=== PATIENT | female | born 1945 | race Two or more races ===

== ENCOUNTER → 2024-12-13 | Outpatient (CLI) | payer MEDICARE, SELFPAY ==
--- NOTE | 2024-12-13 10:00 | XR_ITS ---
Examination: MRI brain without intravenous contrast. Date and time of exam: December 13, 2024 1154 hours INDICATIONS: Blurred vision increasing memory loss over the last 3 months Technique: Multiple axial and sagittal images of the brain obtained. Siemens high-resolution 1.5 Tonya short bore scanners utilized. Sagittal sections, T1-weighted, TR 500, TE 14, are performed. Axial sections proton-density and T2-weighted have been obtained. Inversion recovery axial images, TR 9, 260, TE 111, TI 2500. Diffusion weighted images, axial sections, TR 4800, TE 128, B value 1000 Axial sections, ADC map, TR 4800, TE 128 Findings: Enlargement of the sella turcica is not present. The optic chiasm and infundibular are not remarkable. Prepontine and interpeduncular cisterns are not enlarged. There is no localized enlargement of the medulla or isai. Fourth ventricle and cerebellar tonsils appear normal in position. No subacute area of hemorrhage density is seen. Mass in the cerebellopontine angle region is not evident. Globes symmetrical. Orbital musculature including medial lateral rectus muscles do not exhibit abnormality. Diffusion-weighted images demonstrate no focus of restricted diffusion. Increased white matter signal moderate Mass effect upon the ventricular system is not identified. Impression: Negative for acute hemorrhage, mass effect or midline shift No acute infarct Moderate chronic microvascular white matter change
== END | disposition home or self-care (01) ==
PROVIDERS: PCP Nurse Practitioner Family; Referring Provider Psychiatry & Neurology Neurology; Visit Provider Psychiatry & Neurology Neurology
DX: R90.82 White matter disease, unspecified (principal)
CPT/HCPCS: 70551

== ENCOUNTER 2025-03-12 19:52 | Emergency (ER) | payer MEDICARE, SELFPAY ==
[2025-03-12 19:53] VITALS: BMI 28.0
[2025-03-12 20:06] VITALS: BP 146/83; PULSE 63; RESP 18; TEMP 36.4; O2SAT 98
--- NOTE | 2025-03-12 20:09 | XR_ITS ---
Examination: Knee, right , 3 views Technique: Knee AP, lateral, oblique 3 views Date and time of exam: March 12, 2025, 2013 hrs. Indications: Patient fell today with into the knee, knee pain Findings: Prominent soft tissue swelling anterior knee No fracture or dislocation Impression: Consider ultrasound soft tissue anterior knee to exclude large soft tissue hematoma
--- NOTE | 2025-03-12 20:09 | XR_ITS ---
Examination: CT cervical spine without contrast 2-D sagittal reconstructions 2-D coronal reconstructions 3-D reconstructions. Exam date and time:March 12, 2025, 2024 hrs. Indications: Ground-level fall today with into the neck, neck pain CTDI:vol (mGy) 12.2 DLP: (mGycm) 231 Technique: Multiple 2 mm axial sections of the cervical spine have been obtained. The coronal and sagittal reconstructions have been obtained. 3-D reconstructions have been obtained. Low dose protocols were performed. One or more of the following dose reduction techniques were used; automated exposure control, adjustment of the mA and/or KV according to patient size, use of iterative reconstruction technique. Findings: Axial sections demonstrate intact base of the skull. C1 exhibit satisfactory relationship to the odontoid. No acute cervical vertebral body fracture seen. Alignment posterior spinous processes satisfactory. Impression: No acute cervical fracture.
--- NOTE | 2025-03-12 20:09 | XR_ITS ---
Examination: CT brain head without contrast. 2-D sagittal coronal reconstructions Date and time of exam:March 12, 2025, 2025 hrs. Indications: Patient fell today with injury to the head, head pain dizziness CTDI: vol (mGy):46.5 DLP: (mGycm):932 Technique: Multiple CT axial sections of the brain have been obtained, 5 mm slice thickness. Contrast has not been administered. 2-D sagittal, coronal reconstructions have been obtained Low dose protocols were performed. One or more of the following dose reduction techniques were used; automated exposure control, adjustment of the mA and/or KV according to patient size, use of iterative reconstruction technique. Findings: No significant ventricular enlargement. Intra-axial or extra-axial hemorrhage density is not seen. No mass effect or midline shift Basal cisterns are not remarkable. Fourth ventricle is midline. Soft tissue swelling right frontal scalp Bone destruction which involves the occipital bones is again noted, also noted on the December 01, 2019 study, it may be slightly more prominent on the current exam Impression: Negative for acute hemorrhage or mass effect Possibly more prominent bone destruction involving the occipital bones, which may represent an unusually prominent pacchionian granulations Recommend MRI brain follow-up pre and postcontrast to exclude other etiologies for this cortical bone destruction
--- NOTE | 2025-03-12 20:10 | PD.EDRME ---
Rapid Medical Screening Exam [facility] Arrival date/time: 03/12/25 19:52 80F with history of HTN presents to ED with R knee and R head pain after patient tripped and fell. Patient landed on knee first. Patient also has some skin abrasions and has not had a tetanus shot in the past 5 years. Chief Complaint: Fall Vital signs: Vital Signs Temperature 97.6 F 03/12/25 20:06 Pulse Rate 63 03/12/25 20:06 Respiratory Rate 18 03/12/25 20:06 Blood Pressure 146/83 H 03/12/25 20:06 Pulse Oximetry (%) 98 03/12/25 20:06 Oxygen Delivery Method Room Air 03/12/25 20:06
[2025-03-12] MEDS: ACETAMINOPHEN 500 MG TABLET 1000 MG PO (20:19)
[2025-03-12] MEDS: DIPHTH,PERTUSS(ACELL),TET VAC 0.5 ML SYR- ADULT IMi (20:20)
[2025-03-12 20:58] VITALS: BP 139/86; PULSE 62; RESP 16; O2SAT 96
--- NOTE | 2025-03-12 21:19 | PD.EDFALL ---
ED Fall Injury RME/HPI General Chief Complaint: Fall Stated Complaint: TRIPPED AND FELL, HEAD AND RIGHT KNEE PAIN Arrival date/time: 03/12/25 19:52 RME / HPI RME / HPI Narrative: 03/12/25 19:52 80F with history of HTN presents to ED with R knee and R head pain after patient tripped and fell. Patient landed on knee first. Patient also has some skin abrasions and has not had a tetanus shot in the past 5 years. --------- Dr. Glover?s Main ED Evaluation: 80yo female presents to the ED for a chief complaint of right knee pain. Patient tripped over a rug and fell, causing her to land on her right knee. She did hit her head, but did not lose consciousness. Patient denies any neck pain, chest pain, or any other associated symptoms. She is not on any blood thinners. She was able to ambulate after she fell. NKA. Related Data Previous Rx's ?Medication ?Instructions ?Recorded ibuprofen 600 mg tablet 600 mg PO TID PRN pain #30 tabs 10/03/21 tramadol 50 mg tablet 50 mg PO TID PRN pain #20 tabs 10/03/21 Allergies Allergy/AdvReac Type Severity Reaction Status Date / Time No Known Allergies Allergy Verified 10/03/21 11:18 Review of Systems Review of Systems Systems Reviewed: All systems reviewed, normal except as documented Past Medical History Past Medical History NEUROLOGIC: Negative Neurological Disorders, Cerebrovascular Accident or Transient Ischemic Attacks (TIA) CARDIAC: Positive Hypertension; Negative Myocardial Infarction or Hypotension RESPIRATORY: Negative Chronic Obstructive Pulmonary Disease (COPD) or Cystic Fibrosis GASTROINTESTINAL: Negative Liver Cancer or Pancreatic Cancer GENITOURINARY: Negative Genitourinary Disorders or Renal Disease MUSCULOSKELETAL: Negative Musculoskeletal Disorders, Marfan's Syndrome or Bone Cancer ENT: Negative Blind or Deafness ENDOCRINE: Negative Endocrine Disorders, Diabetes Mellitus Type 1 or Diabetes Mellitus Type 2 PSYCHO/SOCIAL: Negative Psychiatric Problems OTHER HISTORY: Negative Down Syndrome or Developmental Delay Social History SMOKING STATUS: Never smoker ED Exam Narrative Physical exam: Generally patient is alert and in no obvious distress, heart is regular rate and rhythm, lungs clear to auscultation equal bilaterally, abdomen is soft bowel sounds present nondistended nontender, extremities show abrasion over the right knee with soft tissue swelling over the right knee. Patient has equal dorsalis pedis pulses bilaterally. Head shows slight abrasion to the right upper forehead. Mild cephalhematoma. Neck shows no midline tenderness and nontender to head compression. Course Quality Measures none Orders Category Date Time Status Wound Care NOW Care 03/12/25 20:09 Active audie wrap [Splint / Immobilizer] STAT Care 03/12/25 21:[address] cervical spine wo con Stat Exams 03/12/25 20:[address] head/brain wo con Stat Exams 03/12/25 20:09 Completed XR knee RT 3V Stat Exams 03/12/25 20:09 Completed Acetaminophen Tab [Tylenol ES Tab] Med 03/12/25 20:09 Discontinued 1,000 mg PO X1 ONE TET,DIP/PERT AC (Adult)-Tdap [Boostrix Adult (Tdap) Med 03/12/25 20:09 Discontinued Vacc] 0.5 ml IMI .ONCE ONE Vital Signs Vital signs: Vital Signs Temperature 97.6 F 03/12/25 20:06 Pulse Rate 63 03/12/25 20:06 Respiratory Rate 18 03/12/25 20:06 Blood Pressure 146/83 H 03/12/25 20:06 Pulse Oximetry (%) 98 03/12/25 20:06 Oxygen Delivery Method Room Air 03/12/25 20:06 Fall MDM Narrative MDM Narrative:: Scribe Attestation: 03/12/25 Christine Bergman am scribing for and in the presence of Dr. Glover. Differential diagnosis: Fracture, dislocation, intracerebral bleed Head CT was negative. CT scan of the cervical spine showed no fracture no dislocation. X-ray of the right knee showed no fracture but does show soft tissue swelling most likely due to subcutaneous hematoma. This hematoma is not over the tibia. It is over the right knee. Nonadhesive gauze was applied over the superficial abrasion. Audie wrap for compression was applied. Patient has been able to walk on that knee since the incident. This was not a pretibial hematoma. Patient may take Tylenol and/or ibuprofen as needed for pain. Elevate right knee is much as possible. Ice to reduce swelling. Follow-up with her doctor. She may return to the emergency room as needed or if condition worsens. Patient data External records reviewed:: [facility] previous records (Per chart review, patient has no relevant previous ED visits.) Clinical information provided by:: patient Social determinants that could affect healthcare access:: none Patient has the following chronic illnesses:: HTN How is presenting disease/condition affected by chronic disease/condition?: uneffected by Evaluation data The following diagnostics were reviewed and interpreted by me:: radiology exam(s) Lab and/or radiology exams considered but not ordered:: none Interpretation Summary: [facility] Report Signed Patient: KIKE MORTENSEN. Record#: [id number] Birthdate: 1945 Age/Sex: 80 / F Location: [facility] Attending Dr: Ordering Physician: Osito Drake PA-C Date of Service: 03/12/25 Procedure(s): XR knee RT 3V Accession Number(s): [id number] cc: Paul Llanes; Kendrick Melton MD; Osito Drake PA-C~ Examination: Knee, right , 3 views Technique: Knee AP, lateral, oblique 3 views Date and time of exam: March 12, 2025, 2013 hrs. Indications: Patient fell today with into the knee, knee pain Findings: Prominent soft tissue swelling anterior knee No fracture or dislocation Impression: Consider ultrasound soft tissue anterior knee to exclude large soft tissue hematoma Dictated By: Kendrick Melton MD Signed By: <Electronically signed by Kendrick Melton MD in > 03/12/252057 [facility] Report Signed Patient: KIKE MORTENSEN Record#: [id number] Birthdate: 1945 Age/Sex: 80 / F Location: [facility] Attending Dr: Ordering Physician: Osito Drake PA-C Date of Service: 03/12/25 Procedure(s): CT head/brain wo con Accession Number(s): [id number] cc: Paul Llanes; Kendrick Melton MD; Osito Drake PA-C~ Examination: CT brain head without contrast. 2-D sagittal coronal reconstructions Date and time of exam:March 12, 2025, 2025 hrs. Indications: Patient fell today with injury to the head, head pain dizziness CTDI: vol (mGy):46.5 DLP: (mGycm):932 Technique: Multiple CT axial sections of the brain have been obtained, 5 mm slice thickness. Contrast has not been administered. 2-D sagittal, coronal reconstructions have been obtained Low dose protocols were performed. One or more of the following dose reduction techniques were used; automated exposure control, adjustment of the mA and/or KV according to patient size, use of iterative reconstruction technique. Findings: No significant ventricular enlargement. Intra-axial or extra-axial hemorrhage density is not seen. No mass effect or midline shift Basal cisterns are not remarkable. Fourth ventricle is midline. Soft tissue swelling right frontal scalp Bone destruction which involves the occipital bones is again noted, also noted on the December 01, 2019 study, it may be slightly more prominent on the current exam Impression: Negative for acute hemorrhage or mass effect Possibly more prominent bone destruction involving the occipital bones, which may represent an unusually prominent pacchionian granulations Recommend MRI brain follow-up pre and postcontrast to exclude other etiologies for this cortical bone destruction Dictated By: Kendrick Melton MD Signed By: <Electronically signed by Kendrick Melton MD in OV> 03/12/252050 [facility] Report Signed Patient: KIKE MORTENSEN Record#: [id number] Birthdate: 1945 Age/Sex: 80 / F Location: [facility] Attending Dr: Ordering Physician: Osito Drake PA-C Date of Service: 03/12/25 Procedure(s): CT cervical spine wo con Accession Number(s): [id number] cc: Paul Llanes; Kendrick Melton MD; Osito Drake PA-C~ Examination: CT cervical spine without contrast 2-D sagittal reconstructions 2-D coronal reconstructions 3-D reconstructions. Exam date and time:March 12, 2025, 2024 hrs. Indications: Ground-level fall today with into the neck, neck pain CTDI:vol (mGy) 12.2 DLP: (mGycm) 231 Technique: Multiple 2 mm axial sections of the cervical spine have been obtained. The coronal and sagittal reconstructions have been obtained. 3-D reconstructions have been obtained. Low dose protocols were performed. One or more of the following dose reduction techniques were used; automated exposure control, adjustment of the mA and/or KV according to patient size, use of iterative reconstruction technique. Findings: Axial sections demonstrate intact base of the skull. C1 exhibit satisfactory relationship to the odontoid. No acute cervical vertebral body fracture seen. Alignment posterior spinous processes satisfactory. Impression: No acute cervical fracture. Dictated By: Kendrick Melton MD Signed By: <Electronically signed by Kendrick Melton MD in OV> 03/12/252048 Medications / Prescriptions Medications or Prescriptions considered but not ordered:: none Medication administrations:: Medication Administration History Discontinued Medications Acetaminophen (Acetaminophen 500 Mg Tablet) 1,000 mg PO X1 ONE Stop: 03/12/25 20:10 Last Admin: 03/12/25 20:19 Dose: 1,000 mg Documented By: Diphtheria/Tetanus/Acell Pertussis (Diphth,Pertuss(Acell),Tet Vac 0.5 Ml Syr- Adult) 0.5 ml IMi .ONCE ONE Stop: 03/12/25 20:10 Last Admin: 03/12/25 20:20 Dose: 0.5 ml Documented By: see above Consultations Consultation(s) initiated? (list below): No Diagnosis Fall Differential Diagnosis: other (See MDM) Most likely diagnosis given after review of the tests above:: see clinical impression below Admission Indicated Admission indicated?: not indicated Admission Request Was there a request for admission?: No Disposition Plan Disposition Plan: Discharge Discharge Attestation Discharge Attestation: The patient and all family members were given an opportunity to ask questions and understood the discharge instructions. Discharge instructions specifically effects, indications for sooner follow up or return to the emergency department, and the expected course of current diagnosis. Patient condition: Stable Discharge Plan Plan Patient Disposition: HOME (Self Care) Prescriptions/Referrals Prescriptions/Med Rec: No Action tramadol 50 mg tablet 50 mg PO TID PRN (Reason: pain) Qty: 20 0RF ibuprofen 600 mg tablet 600 mg PO TID PRN (Reason: pain) Qty: 30 0RF Referrals: Paul Llanes [Primary Care Provider] - In 1 week Problem List Clinical Impression: Fall, Soft tissue swelling, Subcutaneous hematoma Patient/Caregiver Discharge Instructions Additional Instructions: Use the Audie wrap for support. Ice to reduce swelling. Tylenol and ibuprofen for pain. Follow-up with your doctor. Return to ER as needed or if condition worsens. Elevate right leg is much as possible. Print Language: Chinese Stand Alone Forms: [facility] Award Info., Patient Portal Info Letter
[2025-03-12 22:04] VITALS: BP 145/85; PULSE 75; RESP 14; TEMP 37; O2SAT 99
== END 2025-03-12 22:04 | disposition home or self-care (01) ==
PROVIDERS: Emergency Provider Emergency Medicine; PCP Internal Medicine
DX: S00.81XA Abrasion of other part of head, initial encounter (principal); S00.03XA Contusion of scalp, initial encounter; M79.89 Other specified soft tissue disorders; M54.2 Cervicalgia; W01.198A Fall on same level from slipping, tripping and stumbling with subsequent striking against other object, initial encounter; Z23 Encounter for immunization
CPT/HCPCS: 70450; 72125; 73562; 90471; 90715; 99284; A9270